=== PATIENT | female | born 1960 | race Caucasian/White ===

== ENCOUNTER → 2016-10-21 | Outpatient (CLI) | payer BC ==
[~2016-10-21] MED LIST: CHOL400T PO; CYAN500T13 PO; EFFSR/75 PO; FLUT0.15; GLIP10TA9 PO; LISI-729 PO; LORA-741 PO; MAGN250T3 PO; METF1TAB53 PO; SYN112 PO; WARF5TAB7 PO; WARF5TAB90 PO; ZNF/4 PO
== END | disposition home or self-care (01) ==
LOC: C.RDSM 11:30
PROVIDERS: ATTEND Physical Medicine & Rehabilitation Sports Medicine
DX: M25.532 Pain in left wrist (principal)